=== PATIENT | male | born 1965 | race Caucasian/White ===

== ENCOUNTER 2017-12-03 16:19 | Emergency (ER) | payer OTHER ==
--- OUTSIDE RECORDS SUMMARY | 2017-12-03 16:33 | XMS REPORT ---
:1965 External Reference #:[id number] Author Organization [facility] Address [address] [address] Phone [phone] Care Team Providers Name Role Phone Luis Miguel Villafana MD Primary Care Physician Unavailable Payers Type Date Identification Numbers Payment Provider Subscriber Commercial Policy Number: [id number] Neville Adams Petty PayID: [id number] [address] [place] [address] Medigap Part B Expires: 2013 Policy Number: [facility] Adams Petty [id number] Group Number: [id number] [address] [address] PayID: [id number] [place] [address] Problems Date Description Provider Status Onset: 07/09/2012 Rheumatoid arthritis Otis Sacnhez M.D. 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 Active Encounter Onset: 07/09/2012 Arthralgia of the lower leg Otis Sanchez M.D. Active Onset: 10/26/2014 Taking medication OK Reyes Active Social History Type Date Description Comments ETOH Use Rarely consumes alcohol Smoking Patient has never smoked Allergies, Adverse Reactions, Alerts Date Description Reaction Status Severity Comments 12/24/2010 NKDA active Medications Medication Date Status Form Strength Qnty SIG Indications Ordering Provider Hydroxychloroquine 05/22/ Active Tablets 200mg 60tabs 2 tabs M06.09 Zsofia Sulfate 2017 daily. OK Barnes Methotrexate 05/22/ Active Tablets 2.5mg 24tabs 6 tbs M06.09 Zsofia 2017 by aubrey Barnes every week Z79.899 Omeprazole 11/04/[address] 20mg 90caps 1 by mouth Zsofia every day Cameron, [employer] Folic Acid 06/17/2013 Active Tablets 1mg 30tabs take 1 Z79 Zsofia tablet .89 Cameron, daily 9 [employer] Ibuprofen Active Tablets 200mg 20tabs prn Unknown Lansoprazole Active Capsules DR 30mg 30caps take 1 Z79 Zsofia capsule .89 Cameron, daily 9 [employer] Fish Oil Active Capsules 1200mg 2 by mouth Unknown every day Carol Allergy 05/22/2017 - Hx Tablets 60mg 30tabs 1 by mouth J30 Zsofia 11/23/2017 every day .9 Cameron, [employer] Prednisone 02/18/2017 - Hx Tablets 5mg 50tabs take 4 Zsofia 05/21/2017 tablets po Cameron, daily for [employer] 5 days, 3 tabs for 5 days, 2 tabs 5 days then 1 tabs for 5 days then d/c Methotrexate 02/18/2017 - Hx Tablets 2.5mg 24tabs 6 tbs by M06 Zsofia 05/22/2017 mouth .09 Cameron, every week [employer] Z79.899 Methotrexate 07/21/2014 - Hx Tablets 2.5mg 20tabs 4 tbs by M06.09 Zsofia 02/18/2017 mouth every Cameron, [employer] week Z79.899 Prednisone 07/09/2012 - Hx Tablets 5mg 70tabs 4 qd x 1 714.0 Otis 10/13/2012 week, 3 qd x Laura, M.D. 1 week, 2 qd x 1 week, 1 qd x 1 week Prednisone 12/09/2011 - Hx Tablets 5mg 63tabs 4 qd x 1 Otis 03/05/2012 week, 3 qd x Laura, M.D. 1 week, 2 qd x 1 week Prednisone 01/07/2011 - Hx Tablets 5mg 65tabs 2 qam + 1 Otis 05/08/2011 qpm for 2 Endo, M.D. weeks, then 1 qam + 1 qpm x 1 week, then 1 qam. Methotrexate 12/24/2010 - Hx Tablets 2.5mg 96tabs take 6 714.0 Zsofia 07/21/2014 tablets one Cameron, [facility] time per week Naproxen Sodium - Hx Tablets 220mg 60tabs 1 po bid prn Unknown 01/12/2014 Immunizations CPT Code Status Date Vaccine Reaction Lot # 82067 Given 08/24/2017 Influenza Virus Vaccine, no reaction noted [id number] Quadrivalent, Split, Preservative Free [id number] Given 07/15/2016 Influenza Virus Vaccine, no reaction noted [id number] Quadrivalent, Split Virus, [place] [address] Given 08/01/2015 Influenza Virus Vaccine, No reaction noted [id number] Quadrivalent, Split, Preservative Free [id number] Given 07/21/2014 Flu Vaccine Split Virus [id number] Preservative Free For Indiv 3Yr Older Vital Signs Date Vital Result Comment 11/23/2017 Weight 310.00 lb Heart Rate 110 /min BP Systolic Sitting 150 mmHg BP Diastolic Sitting 90 mmHg O2 % BldC Oximetry 92 % 08/24/2017 Height 69 inches 5'9" Weight 313.00 lb Heart Rate 82 /min BP Systolic Sitting 140 mmHg BP Diastolic Sitting 90 mmHg Respiratory Rate 14 /min BMI (Body Mass Index) 46.2 kg/m2 05/22/2017 Height 69 inches 5'9" Weight 314.00 lb Heart Rate 84 /min BP Systolic Sitting 152 mmHg BP Diastolic Sitting 98 mmHg Respiratory Rate 14 /min Body Temperature 97.6 F Pain Level 0 BMI (Body Mass Index) 46.4 kg/m2 11/18/2016 Height 69 inches 5'9" Weight 320.00 lb Heart Rate 84 /min BP Systolic Sitting 140 mmHg BP Diastolic Sitting 80 mmHg Respiratory Rate 14 /min Pain Level 14 BMI (Body Mass Index) 47.3 kg/m2 07/15/2016 Height 69 inches 5'9" Weight 320.00 lb BP Systolic Sitting 140 mmHg BP Diastolic Sitting 90 mmHg Respiratory Rate 14 /min Body Temperature 97.3 F Pain Level 3 BMI (Body Mass Index) 47.3 kg/m2 03/14/2016 Height 69 inches 5'9" Weight 306.00 lb Heart Rate 76 /min BP Systolic Sitting 144 mmHg BP Diastolic Sitting 98 mmHg Body Temperature 98.1 F Pain Level 0 BMI (Body Mass Index) 45.2 kg/m2 11/06/2015 Height 69 inches 5'9" Weight 316.00 lb Heart Rate 80 /min BP Systolic Sitting 130 mmHg BP Diastolic Sitting 88 mmHg Body Temperature 98.0 F Pain Level 2 BMI (Body Mass Index) 46.7 kg/m2 08/01/2015 Height 69 inches 5'9" Weight 300.00 lb Heart Rate 84 /min BP Systolic Sitting 128 mmHg BP Diastolic Sitting 70 mmHg Body Temperature 98.0 F Pain Level 0 BMI (Body Mass Index) 44.3 kg/m2 05/03/2015 Height 69 inches 5'9" Weight 300.00 lb Heart Rate 74 /min BP Systolic Sitting 138 mmHg BP Diastolic Sitting 88 mmHg Pain Level 1 BMI (Body Mass Index) 44.3 kg/m2 01/23/2015 Height 69 inches 5'9" Weight 295.00 lb BP Systolic Sitting 140 mmHg BP Diastolic Sitting 88 mmHg Pain Level 68 BMI (Body Mass Index) 43.6 kg/m2 10/26/2014 Height 69 inches 5'9" Weight 296.00 lb with 4 # boots Heart Rate 68 /min BP Systolic Sitting 140 mmHg BP Diastolic Sitting 88 mmHg Pain Level 2 BMI (Body Mass Index) 43.7 kg/m2 07/21/2014 Height 69 inches 5'9" Weight 318.50 lb Heart Rate 80 /min BP Systolic Sitting 132 mmHg BP Diastolic Sitting 80 mmHg Pain Level 0 BMI (Body Mass Index) 47.0 kg/m2 04/13/2014 Height 69 inches 5'9" Weight 315.00 lb Heart Rate 72 /min BP Systolic Sitting 138 mmHg BP Diastolic Sitting 88 mmHg Pain Level 0 BMI (Body Mass Index) 46.5 kg/m2 01/12/2014 Height 69 inches 5'9" Weight 315.00 lb Heart Rate 72 /min BP Systolic 126 mmHg BP Diastolic 82 mmHg BMI (Body Mass Index) 46.5 kg/m2 09/16/2013 Height 69 inches 5'9" Weight 317.25 lb Heart Rate 84 /min BP Systolic Sitting 142 mmHg BP Diastolic Sitting 86 mmHg BMI (Body Mass Index) 46.8 kg/m2 06/17/2013 Height 69 inches 5'9" Weight 314.50 lb Heart Rate 87 /min BP Systolic Sitting 144 mmHg BP Diastolic Sitting 96 mmHg BMI (Body Mass Index) 46.4 kg/m2 02/23/2013 Height 69 inches 5'9" Weight 310.00 lb Heart Rate 80 /min BP Systolic Sitting 132 mmHg BP Diastolic Sitting 72 mmHg BMI (Body Mass Index) 45.8 kg/m2 10/14/2012 Height 69 inches 5'9" Weight 310.00 lb Heart Rate 84 /min BP Systolic Sitting 132 mmHg BP Diastolic Sitting 74 mmHg BMI (Body Mass Index) 45.8 kg/m2 07/09/2012 Height 69 inches 5'9" Weight 300.00 lb Heart Rate 80 /min BP Systolic Sitting 131 mmHg BP Diastolic Sitting 78 mmHg BMI (Body Mass Index) 44.3 kg/m2 03/05/2012 Height 69 inches 5'9" Weight 300.00 lb Heart Rate 81 /min BP Systolic Sitting 127 mmHg BP Diastolic Sitting 73 mmHg BMI (Body Mass Index) 44.3 kg/m2 12/09/2011 Height 69 inches 5'9" Heart Rate 78 /min BP Systolic Sitting 131 mmHg BP Diastolic Sitting 77 mmHg 09/09/2011 Height 69 inches 5'9" Weight 300.00 lb Heart Rate 88 /min BP Systolic Sitting 131 mmHg BP Diastolic Sitting 76 mmHg BMI (Body Mass Index) 44.3 kg/m2 05/08/2011 Weight 280.00 lb BP Systolic 118 mmHg BP Diastolic 82 mmHg 02/27/2011 Weight 284.00 lb Heart Rate 68 /min BP Systolic 122 mmHg BP Diastolic 80 mmHg 12/24/2010 Height 71 inches 5'11" Weight 276.00 lb Heart Rate 80 /min BP Systolic 130 mmHg BP Diastolic 78 mmHg BMI (Body Mass Index) 38.5 kg/m2 Results Test Date Test Result H/L Range Note CBC Auto Diff 08/24/2017 White Blood Count 7.0 10^3/uL 3.5-10.8 Red Blood Count 5.23 10^6/uL 4.0-5.4 Hemoglobin 16.1 g/dL 14.0-18.0 Hematocrit 47 % 42-52 Mean Corpuscular Volume 90 fL 80-94 Mean Corpuscular Hemoglobin 31 pg 27-31 Mean Corpuscular HGB Conc 34 g/dL 31-36 Red Cell Distribution Width 14 % 10.5-15 Platelet Count 216 10^3/uL 150-450 Mean Platelet Volume 9 um3 7.4-10.4 Abs Neutrophils 5.2 10^3/uL 1.5-7.7 Abs Lymphocytes 1.1 10^3/uL 1.0-4.8 Abs Monocytes 0.5 10^3/uL 0-0.8 Abs Eosinophils 0.1 10^3/uL 0-0.6 Abs Basophils 0 10^3/uL 0-0.2 Abs Nucleated RBC 0 10^3/uL Granulocyte % 74.8 % 38-83 Lymphocyte % 15.8 % Low 25-47 Monocyte % 7.3 % 1-9 Eosinophil % 1.6 % 0-6 Basophil % 0.5 % 0-2 Nucleated Red Blood Cells % 0.1 Comp Metabolic Panel 08/24/2017 Sodium 137 mmol/L 133-145 Potassium 4.1 mmol/L 3.5-5.0 Chloride 105 mmol/L 101-111 Co2 Carbon Dioxide 25 mmol/L 22-32 Anion Gap 7 mmol/L 2-11 Glucose 121 mg/dL High 70-100 Blood Urea Nitrogen 17 mg/dL 6-24 Creatinine 0.91 mg/dL 0.67-1.17 BUN/Creatinine Ratio 18.7 8-20 Calcium 9.0 mg/dL 8.6-10.3 Total Protein 6.7 g/dL 6.4-8.9 Albumin 4.3 g/dL 3.2-5.2 Globulin 2.4 g/dL 2-4 Albumin/Globulin Ratio 1.8 1-3 Total Bilirubin 0.50 mg/dL 0.2-1.0 Alkaline Phosphatase 80 U/L 34-104 Alt 25 U/L 7-52 Ast 18 U/L 13-39 Egfr Non- 87.5 >60 Egfr 112.5 >60 1 Laboratory test finding 08/24/2017 C Reactive Protein 6.69 mg/L High < 5.00 2 Erythrocyte Sed Rate 15 mm/Hr 0-20 CBC W/Auto Diff 05/18/2017 White Blood Count 8.9 10^3/uL 3.5-10.8 Red Blood Count 4.96 10^6/uL 4.0-5.4 Hemoglobin 15.4 g/dL 14.0-18.0 Hematocrit 45 % 42-52 Mean Corpuscular Volume 90 fL 80-94 Mean Corpuscular Hemoglobin 31 pg 27-31 Mean Corpuscular HGB Conc 34 g/dL 31-36 Red Cell Distribution Width 14 % 10.5-15 Platelet Count 228 10^3/uL 150-450 Mean Platelet Volume 9 um3 7.4-10.4 Abs Neutrophils 6.6 10^3/uL 1.5-7.7 Abs Lymphocytes 1.4 10^3/uL 1.0-4.8 Abs Monocytes 0.7 10^3/uL 0-0.8 Abs Eosinophils 0.2 10^3/uL 0-0.6 Abs Basophils 0 10^3/uL 0-0.2 Abs Nucleated RBC 0 10^3/uL Granulocyte % 74.3 % 38-83 Lymphocyte % 15.2 % Low 25-47 Monocyte % 7.8 % 1-9 Eosinophil % 2.2 % 0-6 Basophil % 0.5 % 0-2 Nucleated Red Blood Cells % 0 CMP Panel 05/18/2017 Sodium 139 mmol/L 133-145 Potassium 5.0 mmol/L 3.5-5.0 Chloride 103 mmol/L 101-111 Co2 Carbon Dioxide 30 mmol/L 22-32 Anion Gap 6 mmol/L 2-11 Glucose 106 mg/dL High 70-100 Blood Urea Nitrogen 15 mg/dL 6-24 Creatinine 1.01 mg/dL 0.67-1.17 BUN/Creatinine Ratio 14.9 8-20 Calcium 9.3 mg/dL 8.6-10.3 Total Protein 6.8 g/dL 6.4-8.9 Albumin 4.3 g/dL 3.2-5.2 Globulin 2.5 g/dL 2-4 Albumin/Globulin Ratio 1.7 1-3 Total Bilirubin 0.60 mg/dL 0.2-1.0 Alkaline Phosphatase 87 U/L 34-104 Alt 27 U/L 7-52 Ast 22 U/L 13-39 Egfr Non- 77.6 >60 Egfr 99.8 >60 3 Laboratory test finding 05/18/2017 C Reactive Protein 7.51 mg/L High < 5.00 4 Erythrocyte Sed Rate 22 mm/Hr High 0-20 CBC Auto Diff 02/17/2017 White Blood Count 10.7 10^3/uL 3.5-10.8 Red Blood Count 4.92 10^6/uL 4.0-5.4 Hemoglobin 15.0 g/dL 14.0-18.0 Hematocrit 43 % 42-52 Mean Corpuscular Volume 88 fL 80-94 Mean Corpuscular Hemoglobin 31 pg 27-31 Mean Corpuscular HGB Conc 35 g/dL 31-36 Red Cell Distribution Width 13 % 10.5-15 Platelet Count 218 10^3/uL 150-450 Mean Platelet Volume 10 um3 7.4-10.4 Abs Neutrophils 8.1 10^3/uL High 1.5-7.7 Abs Lymphocytes 1.5 10^3/uL 1.0-4.8 Abs Monocytes 0.8 10^3/uL 0-0.8 Abs Eosinophils 0.2 10^3/uL 0-0.6 Abs Basophils 0.1 10^3/uL 0-0.2 Abs Nucleated RBC 0 10^3/uL Granulocyte % 75.6 % 38-83 Lymphocyte % 14.0 % Low 25-47 Monocyte % 7.5 % 1-9 Eosinophil % 2.3 % 0-6 Basophil % 0.6 % 0-2 Nucleated Red Blood Cells % 0 Comp Metabolic Panel 02/17/2017 Sodium 138 mmol/L 133-145 Potassium 4.1 mmol/L 3.5-5.0 Chloride 106 mmol/L 101-111 Co2 Carbon Dioxide 26 mmol/L 22-32 Anion Gap 6 mmol/L 2-11 Glucose 88 mg/dL 70-100 Blood Urea Nitrogen 22 mg/dL 6-24 Creatinine 1.02 mg/dL 0.67-1.17 BUN/Creatinine Ratio 21.6 High 8-20 Calcium 8.7 mg/dL 8.6-10.3 Total Protein 6.2 g/dL Low 6.4-8.9 Albumin 3.9 g/dL 3.2-5.2 Globulin 2.3 g/dL 2-4 Albumin/Globulin Ratio 1.7 1-3 Total Bilirubin 0.40 mg/dL 0.2-1.0 Alkaline Phosphatase 90 U/L 34-104 Alt 17 U/L 7-52 Ast 17 U/L 13-39 Egfr Non- 76.7 >60 Egfr 98.6 >60 5 Laboratory test finding 02/17/2017 C Reactive Protein 15.57 mg/L High &lt ; 5.00 6 Erythrocyte Sed Rate 21 mm/Hr High 0-20 7 Comp Metabolic Panel 11/13/2016 Sodium 137 mmol/L 133-145 Potassium 3.8 mmol/L 3.5-5.0 Chloride 105 mmol/L 101-111 Co2 Carbon Dioxide 27 mmol/L 22-32 Anion Gap 5 mmol/L 2-11 Glucose 111 mg/dL High 70-100 Blood Urea Nitrogen 15 mg/dL 6-24 Creatinine 0.91 mg/dL 0.67-1.17 BUN/Creatinine Ratio 16.5 8-20 Calcium 9.1 mg/dL 8.6-10.3 Total Protein 6.6 g/dL 6.4-8.9 Albumin 4.0 g/dL 3.2-5.2 Globulin 2.6 g/dL 2-4 Albumin/Globulin Ratio 1.5 1-3 Total Bilirubin 0.60 mg/dL 0.2-1.0 Alkaline Phosphatase 79 U/L 34-104 Alt 29 U/L 7-52 Ast 24 U/L 13-39 Egfr Non- 87.5 >60 Egfr 112.5 >60 8 Laboratory test finding 11/13/2016 C Reactive Protein 9.82 mg/L High < 5.00 9 CBC Auto Diff 11/13/2016 White Blood Count 10.3 10^3/uL 3.5-10.8 Red Blood Count 5.08 10^6/uL 4.0-5.4 Hemoglobin 15.4 g/dL 14.0-18.0 Hematocrit 45 % 42-52 Mean Corpuscular Volume 89 fL 80-94 Mean Corpuscular Hemoglobin 30 pg 27-31 Mean Corpuscular HGB Conc 34 g/dL 31-36 Red Cell Distribution Width 14 % 10.5-15 Platelet Count 199 10^3/uL 150-450 Mean Platelet Volume 10 um3 7.4-10.4 Abs Neutrophils 8.1 10^3/uL High 1.5-7.7 Abs Lymphocytes 1.2 10^3/uL 1.0-4.8 Abs Monocytes 0.8 10^3/uL 0-0.8 Abs Eosinophils 0.2 10^3/uL 0-0.6 Abs Basophils 0 10^3/uL 0-0.2 Abs Nucleated RBC 0.01 10^3/uL Granulocyte % 78.1 % 38-83 Lymphocyte % 11.6 % Low 25-47 Monocyte % 8.1 % 1-9 Eosinophil % 1.9 % 0-6 Basophil % 0.3 % 0-2 Nucleated Red Blood Cells % 0.1 Laboratory test 11/13/2016 Erythrocyte Sed Rate 21 mm/Hr High 0-20 10 finding Laboratory test 07/15/2016 Hemoglobin A1c (Glyco 6.3 % High Less than 6.0 11 finding HGB) CBC Auto Diff 07/15/2016 White Blood Count 8.7 10^3/uL 3.5-10.8 Red Blood Count 5.31 10^6/uL 4.0-5.4 Hemoglobin 16.1 g/dL 14.0-18.0 Hematocrit 48 % 42-52 Mean Corpuscular Volume 90 fL 80-94 Mean Corpuscular Hemoglobin 30 pg 27-31 Mean Corpuscular HGB Conc 34 g/dL 31-36 Red Cell Distribution Width 14 % 10.5-15 Platelet Count 218 10^3/uL 150-450 Mean Platelet Volume 10 um3 7.4-10.4 Abs Neutrophils 6.7 10^3/uL 1.5-7.7 Abs Lymphocytes 1.1 10^3/uL 1.0-4.8 Abs Monocytes 0.6 10^3/uL 0-0.8 Abs Eosinophils 0.2 10^3/uL 0-0.6 Abs Basophils 0 10^3/uL 0-0.2 Abs Nucleated RBC 0 10^3/uL Granulocyte % 77.3 % 38-83 Lymphocyte % 12.8 % Low 25-47 Monocyte % 7.3 % 1-9 Eosinophil % 2.2 % 0-6 Basophil % 0.4 % 0-2 Nucleated Red Blood Cells % 0 Comp Metabolic Panel 07/15/2016 Sodium 137 mmol/L 133-145 Potassium 4.3 mmol/L 3.5-5.0 Chloride 103 mmol/L 101-111 Co2 Carbon Dioxide 28 mmol/L 22-32 Anion Gap 6 mmol/L 2-11 Glucose 108 mg/dL High 70-100 Blood Urea Nitrogen 18 mg/dL 6-24 Creatinine 1.06 mg/dL 0.67-1.17 BUN/Creatinine Ratio 17.0 8-20 Calcium 9.5 mg/dL 8.6-10.3 Total Protein 6.7 g/dL 6.4-8.9 Albumin 4.0 g/dL 3.2-5.2 Globulin 2.7 g/dL 2-4 Albumin/Globulin Ratio 1.5 1-3 Total Bilirubin 0.40 mg/dL 0.2-1.0 Alkaline Phosphatase 82 U/L 34-104 Alt 31 U/L 7-52 Ast 20 U/L 13-39 Egfr Non- 73.7 >60 Egfr 94.7 >60 12 Laboratory test finding 07/15/2016 C Reactive Protein 13.68 mg/L High &lt ; 5.00 13 Erythrocyte Sed Rate 18 mm/Hr 0-20 14 CBC W/Auto Diff 04/09/2016 White Blood Count 7.0 10^3/uL 3.5-10.8 Red Blood Count 5.22 10^6/uL 4.0-5.4 Hemoglobin 15.5 g/dL 14.0-18.0 Hematocrit 46 % 42-52 Mean Corpuscular Volume 88 fL 80-94 Mean Corpuscular Hemoglobin 30 pg 27-31 Mean Corpuscular HGB Conc 34 g/dL 31-36 Red Cell Distribution Width 14 % 10.5-15 Platelet Count 200 10^3/uL 150-450 Mean Platelet Volume 10 um3 7.4-10.4 Abs Neutrophils 4.9 10^3/uL 1.5-7.7 Abs Lymphocytes 1.2 10^3/uL 1.0-4.8 Abs Monocytes 0.6 10^3/uL 0-0.8 Abs Eosinophils 0.2 10^3/uL 0-0.6 Abs Basophils 0.1 10^3/uL 0-0.2 Abs Nucleated RBC 0 10^3/uL Granulocyte % 70.0 % 38-83 Lymphocyte % 17.3 % Low 25-47 Monocyte % 8.4 % 1-9 Eosinophil % 3.0 % 0-6 Basophil % 1.3 % 0-2 Nucleated Red Blood Cells % 0 CMP Panel 04/09/2016 Sodium 136 mmol/L 133-145 Potassium 4.3 mmol/L 3.5-5.0 Chloride 104 mmol/L 101-111 Co2 Carbon Dioxide 26 mmol/L 22-32 Anion Gap 6 mmol/L 2-11 Glucose 118 mg/dL High 70-100 Blood Urea Nitrogen 19 mg/dL 6-24 Creatinine 0.97 mg/dL 0.67-1.17 BUN/Creatinine Ratio 19.6 8-20 Calcium 9.1 mg/dL 8.6-10.3 Total Protein 6.5 g/dL 6.4-8.9 Albumin 4.0 g/dL 3.2-5.2 Globulin 2.5 g/dL 2-4 Albumin/Globulin Ratio 1.6 1-3 Total Bilirubin 0.40 mg/dL 0.2-1.0 Alkaline Phosphatase 79 U/L 34-104 Alt 32 U/L 7-52 Ast 23 U/L 13-39 Egfr Non- 81.6 >60 Egfr 104.9 >60 15 Laboratory test finding 04/09/2016 Erythrocyte Sed Rate 16 mm/Hr 0-20 16 C Reactive Protein 5.82 mg/L High < 5.00 17 CBC Auto Diff 11/06/2015 White Blood Count 8.0 10^3/uL 3.5-10.8 Red Blood Count 5.32 10^6/uL 4.0-5.4 Hemoglobin 16.2 g/dL 14.0-18.0 Hematocrit 48 % 42-52 Mean Corpuscular Volume 91 fL 80-94 Mean Corpuscular Hemoglobin 31 pg 27-31 Mean Corpuscular HGB Conc 34 g/dL 31-36 Red Cell Distribution Width 14 % 10.5-15 Platelet Count 195 10^3/uL 150-450 Mean Platelet Volume 10 um3 7.4-10.4 Abs Neutrophils 5.8 10^3/uL 1.5-7.7 Abs Lymphocytes 1.0 10^3/uL 1.0-4.8 Abs Monocytes 0.6 10^3/uL 0-0.8 Abs Eosinophils 0.5 10^3/uL 0-0.6 Abs Basophils 0 10^3/uL 0-0.2 Abs Nucleated RBC 0 10^3/uL Granulocyte % 73.0 % 38-83 Lymphocyte % 12.0 % Low 25-47 Monocyte % 7.8 % 1-9 Eosinophil % 6.7 % High 0-6 Basophil % 0.5 % 0-2 Nucleated Red Blood Cells % 0 Comp Metabolic Panel 11/06/2015 Sodium 137 mmol/L 133-145 Potassium 4.5 mmol/L 3.5-5.0 Chloride 103 mmol/L 101-111 Co2 Carbon Dioxide 28 mmol/L 22-32 Anion Gap 6 mmol/L 2-11 Glucose 148 mg/dL High 70-100 Blood Urea Nitrogen 17 mg/dL 6-24 Creatinine 1.05 mg/dL 0.67-1.17 BUN/Creatinine Ratio 16.2 8-20 Calcium 9.0 mg/dL 8.6-10.3 Total Protein 6.4 g/dL 6.4-8.9 Albumin 4.2 g/dL 3.2-5.2 Globulin 2.2 g/dL 2-4 Albumin/Globulin Ratio 1.9 1-3 Total Bilirubin 0.40 mg/dL 0.2-1.0 Alkaline Phosphatase 90 U/L 34-104 Alt 29 U/L 7-52 Ast 21 U/L 13-39 Egfr Non- 74.5 >60 Egfr 95.8 >60 18 Laboratory test finding 11/06/2015 C Reactive Protein 7.17 mg/L High < 5.00 19 Erythrocyte Sed Rate 14 mm/Hr 0-20 20 Hemoglobin A1c (Glyco HGB) 6.2 % High Less than 6.0 21 Comp Metabolic Panel 08/01/2015 Sodium 138 mmol/L 133-145 Potassium 4.2 mmol/L 3.5-5.0 Chloride 106 mmol/L 101-111 Co2 Carbon Dioxide 26 mmol/L 22-32 Anion Gap 6 mmol/L 2-11 Glucose 110 mg/dL High 70-100 Blood Urea Nitrogen 13 mg/dL 6-24 Creatinine 1.21 mg/dL High 0.67-1.17 BUN/Creatinine Ratio 10.7 8-20 Calcium 9.0 mg/dL 8.6-10.3 Total Protein 6.4 g/dL 6.4-8.9 Albumin 4.3 g/dL 3.2-5.2 Globulin 2.1 g/dL 2-4 Albumin/Globulin Ratio 2.0 1-3 Total Bilirubin 0.50 mg/dL 0.2-1.0 Alkaline Phosphatase 96 U/L 34-104 Alt 35 U/L 7-52 Ast 24 U/L 13-39 Egfr Non- 63.5 >60 Egfr 81.6 >60 22 Laboratory test finding 08/01/2015 C Reactive Protein 5.94 mg/L High < 5.00 23 CBC Auto Diff 08/01/2015 White Blood Count 7.7 10^3/uL 4.8-10.8 Red Blood Count 5.26 10^6/uL 4.0-5.4 Hemoglobin 16.2 g/dL 14.0-18.0 Hematocrit 47 % 42-52 Mean Corpuscular Volume 90 fL 80-94 Mean Corpuscular Hemoglobin 31 pg 27-31 Mean Corpuscular HGB Conc 34 g/dL 31-36 Red Cell Distribution Width 14 % 10.5-15 Platelet Count 192 10^3/uL 150-450 Mean Platelet Volume 9 um3 7.4-10.4 Abs Neutrophils 5.6 10^3/uL 1.5-7.7 Abs Lymphocytes 1.4 10^3/uL 1.0-4.8 Abs Monocytes 0.5 10^3/uL 0-0.8 Abs Eosinophils 0.3 10^3/uL 0-0.6 Abs Basophils 0 10^3/uL 0-0.2 Abs Nucleated RBC 0.06 10^3/uL Granulocyte % 72.2 % 38-83 Lymphocyte % 17.7 % Low 25-47 Monocyte % 6.4 % 1-9 Eosinophil % 3.4 % 0-6 Basophil % 0.3 % 0-2 Nucleated Red Blood Cells % 0.7 Laboratory test finding 08/01/2015 Erythrocyte Sed Rate 15 mm/Hr 0-20 24 Comp Metabolic Panel 05/03/2015 Sodium 137 mmol/L 133-145 Potassium 4.3 mmol/L 3.5-5.0 Chloride 104 mmol/L 101-111 Co2 Carbon Dioxide 27 mmol/L 22-32 Anion Gap 6 mmol/L 2-11 Glucose 116 mg/dL High 70-100 Blood Urea Nitrogen 16 mg/dL 6-24 Creatinine 0.94 mg/dL 0.67-1.17 BUN/Creatinine Ratio 17.0 8-20 Calcium 9.4 mg/dL 8.6-10.3 Total Protein 6.7 g/dL 6.4-8.9 Albumin 4.4 g/dL 3.2-5.2 Globulin 2.3 g/dL 2-4 Albumin/Globulin Ratio 1.9 1-3 Total Bilirubin 0.50 mg/dL 0.2-1.0 Alkaline Phosphatase 78 U/L 34-104 Alt 24 U/L 7-52 Ast 20 U/L 13-39 Egfr Non- 84.9 >60 Egfr 109.2 >60 25 Laboratory test finding 05/03/2015 C Reactive Protein 5.88 mg/L High < 5.00 26 CBC Auto Diff 05/03/2015 White Blood Count 7.0 10^3/uL 4.8-10.8 Red Blood Count 5.40 10^6/uL 4.0-5.4 Hemoglobin 16.5 g/dL 14.0-18.0 Hematocrit 49 % 42-52 Mean Corpuscular Volume 91 fL 80-94 Mean Corpuscular Hemoglobin 31 pg 27-31 Mean Corpuscular HGB Conc 34 g/dL 31-36 Red Cell Distribution Width 14 % 10.5-15 Platelet Count 187 10^3/uL 150-450 Mean Platelet Volume 9 um3 7.4-10.4 Abs Neutrophils 4.9 10^3/uL 1.5-7.7 Abs Lymphocytes 1.3 10^3/uL 1.0-4.8 Abs Monocytes 0.6 10^3/uL 0-0.8 Abs Eosinophils 0.2 10^3/uL 0-0.6 Abs Basophils 0 10^3/uL 0-0.2 Abs Nucleated RBC 0.01 10^3/uL Granulocyte % 70.2 % 38-83 Lymphocyte % 18.1 % Low 25-47 Monocyte % 9.0 % 1-9 Eosinophil % 2.2 % 0-6 Basophil % 0.5 % 0-2 Nucleated Red Blood Cells % 0.1 Laboratory test finding 05/03/2015 Erythrocyte Sed Rate 16 mm/Hr 0-20 CBC Auto Diff 01/23/2015 White Blood Count 8.0 10^3/uL 4.8-10.8 Red Blood Count 5.27 10^6/uL 4.0-5.4 Hemoglobin 16.4 g/dL 14.0-18.0 Hematocrit 47 % 42-52 Mean Corpuscular Volume 90 fL 80-94 Mean Corpuscular Hemoglobin 31 pg 27-31 Mean Corpuscular HGB Conc 35 g/dL 31-36 Red Cell Distribution Width 14 % 10.5-15 Platelet Count 207 10^3/uL 150-450 Mean Platelet Volume 10 um3 7.4-10.4 Abs Neutrophils 5.7 10^3/uL 1.5-7.7 Abs Lymphocytes 1.3 10^3/uL 1.0-4.8 Abs Monocytes 0.7 10^3/uL 0-0.8 Abs Eosinophils 0.2 10^3/uL 0-0.6 Abs Basophils 0 10^3/uL 0-0.2 Abs Nucleated RBC 0 10^3/uL Granulocyte % 71.5 % 38-83 Lymphocyte % 16.8 % Low 25-47 Monocyte % 8.6 % 1-9 Eosinophil % 2.5 % 0-6 Basophil % 0.6 % 0-2 Nucleated Red Blood Cells % 0 Comp Metabolic Panel 01/23/2015 Sodium 135 mmol/L 133-145 Potassium 4.0 mmol/L 3.5-5.0 Chloride 104 mmol/L 101-111 Co2 Carbon Dioxide 26 mmol/L 22-32 Anion Gap 5 mmol/L 2-11 Glucose 107 mg/dL High 70-100 Blood Urea Nitrogen 13 mg/dL 6-24 Creatinine 0.99 mg/dL 0.67-1.17 BUN/Creatinine Ratio 13.1 8-20 Calcium 9.2 mg/dL 8.6-10.3 Total Protein 6.5 g/dL 6.4-8.9 Albumin 4.2 g/dL 3.2-5.2 Globulin 2.3 g/dL 2-4 Albumin/Globulin Ratio 1.8 1-3 Total Bilirubin 0.40 mg/dL 0.2-1.0 Alkaline Phosphatase 86 U/L 34-104 Alt 26 U/L 7-52 Ast 25 U/L 13-39 Egfr Non- 80.0 >60 Egfr 102.9 >60 27 Laboratory test finding 01/23/2015 C Reactive Protein 8.16 mg/L High < 5.00 28 Erythrocyte Sed Rate 18 mm/Hr 0-20 Comp Metabolic Panel 10/20/2014 Sodium 137 mmol/L 133-145 Potassium 4.3 mmol/L 3.5-5.0 Chloride 107 mmol/L 101-111 Co2 Carbon Dioxide 25 mmol/L 22-32 Anion Gap 5 mmol/L 2-11 Glucose 129 mg/dL High 70-100 Blood Urea Nitrogen 16 mg/dL 6-24 Creatinine 0.98 mg/dL 0.67-1.17 BUN/Creatinine Ratio 16.3 8-20 Calcium 8.8 mg/dL 8.6-10.3 Total Protein 6.4 g/dL 6.4-8.9 Albumin 4.2 g/dL 3.2-5.2 Globulin 2.2 g/dL 2-4 Albumin/Globulin Ratio 1.9 1-3 Total Bilirubin 0.30 mg/dL 0.2-1.0 Alkaline Phosphatase 99 U/L 34-104 Alt 26 U/L 7-52 Ast 21 U/L 13-39 Egfr Non- 81.0 >60 Egfr 104.1 >60 29 Laboratory test finding 10/20/2014 Erythrocyte Sed Rate 13 mm/Hr 0-20 C Reactive Protein 6.95 mg/L High < 5.00 30 CBC Auto Diff 10/20/2014 White Blood Count 8.4 10^3/uL 4.8-10.8 Red Blood Count 5.37 10^6/uL 4.0-5.4 Hemoglobin 16.1 g/dL 14.0-18.0 Hematocrit 48 % 42-52 Mean Corpuscular Volume 90 fL 80-94 Mean Corpuscular Hemoglobin 30 pg 27-31 Mean Corpuscular HGB Conc 33 g/dL 31-36 Red Cell Distribution Width 14 % 10.5-15 Platelet Count 199 10^3/uL 150-450 Mean Platelet Volume 10 um3 7.4-10.4 Abs Neutrophils 6.4 10^3/uL 1.5-7.7 Abs Lymphocytes 1.2 10^3/uL 1.0-4.8 Abs Monocytes 0.7 10^3/uL 0-0.8 Abs Eosinophils 0.2 10^3/uL 0-0.6 Abs Basophils 0 10^3/uL 0-0.2 Abs Nucleated RBC 0.01 10^3/uL Granulocyte % 75.7 % 38-83 Lymphocyte % 14.0 % Low 25-47 Monocyte % 8.0 % 1-9 Eosinophil % 2.1 % 0-6 Basophil % 0.2 % 0-2 Nucleated Red Blood Cells % 0.1 CBC Auto Diff 06/26/2014 White Blood Count 8.9 10^3/uL 4.8-10.8 Red Blood Count 5.20 10^6/uL 4.0-5.4 Hemoglobin 16.1 g/dL 14.0-18.0 Hematocrit 47 % 42-52 Mean Corpuscular Volume 91 fL 80-94 Mean Corpuscular Hemoglobin 31 pg 27-31 Mean Corpuscular HGB Conc 34 g/dL 31-36 Red Cell Distribution Width 14 % 10.5-15 Platelet Count 220 10^3/uL 150-450 Mean Platelet Volume 10 um3 7.4-10.4 Abs Neutrophils 6.9 10^3/uL 1.5-7.7 Abs Lymphocytes 1.1 10^3/uL 1.0-4.8 Abs Monocytes 0.7 10^3/uL 0-0.8 Abs Eosinophils 0.1 10^3/uL 0-0.6 Abs Basophils 0 10^3/uL 0-0.2 Abs Nucleated RBC 0.01 10^3/uL Neutrophil % 78 % 38-83 Lymphocytes % 14 % Low 25-47 Monocytes % 7 % 0-13 Eosinophils % 1 % 0-6 RBC Morphology Normal Normal Laboratory test finding 06/26/2014 C Reactive Protein 9.79 mg/L High < 5.00 31 Erythrocyte Sed Rate 20 mm/Hr High 0-14 Comp Metabolic Panel 06/26/2014 Sodium 136 mmol/L 133-145 Potassium 4.4 mmol/L 3.7-5.6 Chloride 105 mmol/L 101-111 Co2 Carbon Dioxide 28 mmol/L 22-32 Anion Gap 3 mmol/L 2-11 Glucose 120 mg/dL High 70-100 Blood Urea Nitrogen 18 mg/dL 6-24 Creatinine 0.99 mg/dL 0.67-1.17 BUN/Creatinine Ratio 18.2 8-20 Calcium 9.0 mg/dL 8.6-10.3 Total Protein 6.6 g/dL 6.4-8.9 Albumin 4.2 g/dL 3.2-5.2 Globulin 2.4 g/dL 2-4 Albumin/Globulin Ratio 1.8 1-3 Total Bilirubin 0.40 mg/dL 0.2-1.0 Alkaline Phosphatase 87 U/L 34-104 Alt 31 U/L 7-52 Ast 19 U/L 13-39 Egfr Non- 80.3 >60 Egfr 103.3 >60 32 CBC With Manual Diff 04/03/2014 White Blood Count 7.4 10^3/uL 4.8-10.8 Red Blood Count 5.06 10^6/uL 4.0-5.4 Hemoglobin 15.6 g/dL 14.0-18.0 Hematocrit 45 % 42-52 Mean Corpuscular Volume 89 fL 80-94 Mean Corpuscular Hemoglobin 31 pg 27-31 Mean Corpuscular HGB Conc 35 g/dL 31-36 Red Cell Distribution Width 14 % 10.5-15 Platelet Count 220 10^3/uL 150-450 Mean Platelet Volume 9 um3 7.4-10.4 Abs Neutrophils 5.4 10^3/uL 1.5-7.7 Abs Lymphocytes 1.2 10^3/uL 1.0-4.8 Abs Monocytes 0.7 10^3/uL 0-0.8 Abs Eosinophils 0.1 10^3/uL 0-0.6 Abs Basophils 0 10^3/uL 0-0.2 Abs Nucleated RBC 0 10^3/uL Neutrophil % 71 % 38-83 Lymphocytes % 16 % Low 25-47 Monocytes % 8 % 0-13 Eosinophils % 1 % 0-6 Reactive Lymph % 4 % 0-6 RBC Morphology Normal Normal Laboratory test finding 04/03/2014 Erythrocyte Sed Rate 19 mm/Hr High 0- 14 C Reactive Protein 14.04 mg/L High < 5.00 33 Comp Metabolic Panel 04/03/2014 Sodium 136 mmol/L 133-145 Potassium 4.1 mmol/L 3.7-5.6 Chloride 105 mmol/L 101-111 Co2 Carbon Dioxide 26 mmol/L 22-32 Anion Gap 5 mmol/L 2-11 Glucose 114 mg/dL High 70-100 Blood Urea Nitrogen 13 mg/dL 6-24 Creatinine 1.07 mg/dL 0.67-1.17 BUN/Creatinine Ratio 12.1 8-20 Calcium 9.0 mg/dL 8.6-10.3 Total Protein 6.4 g/dL 6.4-8.9 Albumin 4.1 g/dL 3.2-5.2 Globulin 2.3 g/dL 2-4 Albumin/Globulin Ratio 1.8 1-3 Total Bilirubin 0.40 mg/dL 0.2-1.0 Alkaline Phosphatase 85 U/L 34-104 Alt 26 U/L 7-52 Ast 21 U/L 13-39 Egfr Non- 73.5 >60 Egfr 94.5 >60 34 CBC With Manual Diff 11/18/2013 White Blood Count 9.2 10^3/uL 4.8-10.8 Red Blood Count 5.19 10^6/uL 4.0-5.4 Hemoglobin 15.9 g/dL 14.0-18.0 Hematocrit 47 % 42-52 Mean Corpuscular Volume 90 fL 80-94 Mean Corpuscular Hemoglobin 31 pg 27-31 Mean Corpuscular HGB Conc 34 g/dL 31-36 Red Cell Distribution Width 14 % 10.5-15 Platelet Count 247 10^3/uL 150-450 Mean Platelet Volume 9 um3 7.4-10.4 Abs Neutrophils 7.1 10^3/uL 1.5-7.7 Abs Lymphocytes 1.2 10^3/uL 1.0-4.8 Abs Monocytes 0.6 10^3/uL 0-0.8 Abs Eosinophils 0.2 10^3/uL 0-0.6 Abs Basophils 0 10^3/uL 0-0.2 Abs Nucleated RBC 0 10^3/uL Neutrophil % 83 % 38-83 Band % 1 % 0-8 Lymphocytes % 11 % Low 25-47 Monocytes % 3 % 0-13 Eosinophils % 1 % 0-6 Reactive Lymph % 1 % 0-6 RBC Morphology Normal Normal Laboratory test finding 11/18/2013 Cyclic Citrullinated Pept IgG <15.6 U 35 Rheumatoid Factor <15 IU/mL <15 36 Bing (Anti-Nuclear AB) Screen Negative Negative Karina Screen Negative Negative 37 Anti Double Stranded Dna Negative Negative Comp Metabolic Panel 11/18/2013 Sodium 138 mmol/L 133-145 Potassium 4.6 mmol/L 3.7-5.6 Chloride 104 mmol/L 101-111 Co2 Carbon Dioxide 28 mmol/L 22-32 Anion Gap 6 mmol/L 2-11 Glucose 122 mg/dL High 70-100 Blood Urea Nitrogen 13 mg/dL 6-24 Creatinine 1.03 mg/dL 0.67-1.17 BUN/Creatinine Ratio 12.6 8-20 Calcium 9.3 mg/dL 8.6-10.3 Total Protein 6.6 g/dL 6.4-8.9 Albumin 4.3 g/dL 3.2-5.2 Globulin 2.3 g/dL 2-4 Albumin/Globulin Ratio 1.9 1-3 Total Bilirubin 0.40 mg/dL 0.2-1.0 Alkaline Phosphatase 101 U/L 34-104 Alt 35 U/L 7-52 Ast 22 U/L 13-39 Egfr Non- 76.8 >60 Egfr 98.7 >60 38 Laboratory test finding 11/18/2013 C Reactive Protein 8.98 mg/L High Less than 5.0 39 Erythrocyte Sed Rate 18 mm/Hr High 0-14 Laboratory test finding 09/07/2013 C Reactive Protein 0.7 mg/dL High Less than 0.5 Erythrocyte Sed Rate 19 mm/Hr High 0-14 CBC With Manual Diff 09/07/2013 White Blood Count 7.2 10^3/uL 4.8-10.8 Red Blood Count 5.04 10^6/uL 4.0-5.4 Hemoglobin 15.5 g/dL 14.0-18.0 Hematocrit 45 % 42-52 Mean Corpuscular Volume 89 fL 80-94 Mean Corpuscular Hemoglobin 31 pg 27-31 Mean Corpuscular HGB Conc 35 g/dL 31-36 Red Cell Distribution Width 14 % 10.5-15 Platelet Count 225 10^3/uL 150-450 Mean Platelet Volume 9 um3 7.4-10.4 Abs Neutrophils 5.2 10^3/uL 1.5-7.7 Abs Lymphocytes 1.1 10^3/uL 1.0-4.8 Abs Monocytes 0.6 10^3/uL 0-0.8 Abs Eosinophils 0.2 10^3/uL 0-0.6 Abs Basophils 0 10^3/uL 0-0.2 Abs Nucleated RBC 0.01 10^3/uL Neutrophil % 69 % 38-83 Lymphocytes % 16 % Low 25-47 Monocytes % 10 % 0-13 Eosinophils % 4 % 0-6 Basophil % 1 % 0-2 RBC Morphology Normal Normal Laboratory test finding 09/07/2013 Rheumatoid Factor <15 IU/mL <15 40 Cyclic Citrullinated Pept IgG 26.5 U 41 Comp Metabolic Panel 09/07/2013 Sodium 136 mmol/L 133-145 Potassium 4.6 mmol/L 3.5-5.0 Chloride 103 mmol/L 101-111 Co2 Carbon Dioxide 27.0 mmol/L 22-32 Anion Gap 6.0 mmol/L 2-11 Glucose 104 mg/dL High 70-100 Blood Urea Nitrogen 13 mg/dL 6-24 Creatinine 1.00 mg/dL 0.50-1.40 BUN/Creatinine Ratio 13.0 8-20 Calcium 8.8 mg/dL 8.1-9.9 Total Protein 6.0 g/dL Low 6.2-8.1 Albumin 3.8 g/dL 3.6-5.4 Globulin 2.2 g/dL 2-4 Albumin/Globulin Ratio 1.7 1-3 Total Bilirubin 0.9 mg/dL 0.4-1.5 Alkaline Phosphatase 92 U/L 30-110 Alt 40 U/L 14-54 Ast 28 U/L 12-42 Egfr Non- 79.8 >60 Egfr 102.6 >60 42 Basic Metabolic Panel 05/26/2013 Sodium 137 mmol/L 133-145 Potassium 4.4 mmol/L 3.5-5.0 Chloride 106 mmol/L 101-111 Co2 Carbon Dioxide 26.0 mmol/L 22-32 Anion Gap 5.0 mmol/L 2-11 Glucose 108 mg/dL High 70-100 Blood Urea Nitrogen 18 mg/dL 6-24 Creatinine 1.00 mg/dL 0.50-1.40 BUN/Creatinine Ratio 18.0 8-20 Calcium 9.3 mg/dL 8.1-9.9 Egfr Non- 79.8 >60 Egfr 102.6 >60 43 Liver Function Panel 05/26/2013 Total Protein 6.2 g/dL 6.2-8.1 Albumin 3.9 g/dL 3.6-5.4 Globulin 2.3 g/dL 2-4 Albumin/Globulin Ratio 1.7 1-3 Total Bilirubin 0.7 mg/dL 0.4-1.5 Direct Bilirubin 0.1 mg/dL 0.1-0.5 Indirect Bilirubin 0.6 mg/dL 0.3-1.0 Alkaline Phosphatase 97 U/L 30-110 Alt 34 U/L 14-54 Ast 23 U/L 12-42 Laboratory test 05/26/2013 C Reactive Protein 0.8 mg/dL High Less than 0.5 finding CBC With Manual Diff 05/26/2013 White Blood Count 8.3 10^3/uL 4.8-10.8 Red Blood Count 5.16 10^6/uL 4.0-5.4 Hemoglobin 15.8 g/dL 14.0-18.0 Hematocrit 47 % 42-52 Mean Corpuscular Volume 91 fL 80-94 Mean Corpuscular Hemoglobin 31 pg 27-31 Mean Corpuscular HGB Conc 34 g/dL 31-36 Red Cell Distribution Width 14 % 10.5-15 Platelet Count 225 10^3/uL 150-450 Mean Platelet Volume 9 um3 7.4-10.4 Abs Neutrophils 6.3 10^3/uL 1.5-7.7 Abs Lymphocytes 1.1 10^3/uL 1.0-4.8 Abs Monocytes 0.7 10^3/uL 0-0.8 Abs Eosinophils 0.2 10^3/uL 0-0.6 Abs Basophils 0 10^3/uL 0-0.2 Abs Nucleated RBC 0.01 10^3/uL Neutrophil % 78 % 38-83 Lymphocytes % 13 % Low 25-47 Monocytes % 6 % 0-13 Reactive Lymph % 3 % 0-6 RBC Morphology Normal Normal Laboratory test finding 05/26/2013 Erythrocyte Sed Rate 25 mm/Hr High 0- 14 Basic Metabolic Panel 02/11/2013 Sodium 138 mmol/L 133-145 Potassium 4.5 mmol/L 3.5-5.0 Chloride 105 mmol/L 101-111 Co2 Carbon Dioxide 28.0 mmol/L 22-32 Anion Gap 5.0 mmol/L 2-11 Glucose 106 mg/dL High 70-100 Blood Urea Nitrogen 13 mg/dL 6-24 Creatinine 0.90 mg/dL 0.50-1.40 BUN/Creatinine Ratio 14.4 8-20 Calcium 9.0 mg/dL 8.1-9.9 Egfr Non- 90.1 >60 Egfr 115.8 >60 44 Liver Function Panel 02/11/2013 Total Protein 6.4 g/dL 6.2-8.1 Albumin 3.8 g/dL 3.6-5.4 Globulin 2.6 g/dL 2-4 Albumin/Globulin Ratio 1.5 1-3 Total Bilirubin 0.5 mg/dL 0.4-1.5 Direct Bilirubin 0.1 mg/dL 0.1-0.5 Indirect Bilirubin 0.4 mg/dL 0.3-1.0 Alkaline Phosphatase 103 U/L 30-110 Alt 38 U/L 14-54 Ast 27 U/L 12-42 Laboratory test 02/11/2013 C Reactive Protein 0.9 mg/dL High Less than 0.5 finding CBC With Manual Diff 02/11/2013 White Blood Count 8.2 10^3/uL 4.8-10.8 Red Blood Count 5.13 10^6/uL 4.0-5.4 Hemoglobin 15.8 g/dL 14.0-18.0 Hematocrit 47 % 42-52 Mean Corpuscular Volume 91 fL 80-94 Mean Corpuscular Hemoglobin 31 pg 27-31 Mean Corpuscular HGB Conc 34 g/dL 31-36 Red Cell Distribution Width 14 % 10.5-15 Platelet Count 216 10^3/uL 150-450 Mean Platelet Volume 9 um3 7.4-10.4 Abs Neutrophils 6.0 10^3/uL 1.5-7.7 Abs Lymphocytes 1.3 10^3/uL 1.0-4.8 Abs Monocytes 0.6 10^3/uL 0-0.8 Abs Eosinophils 0.2 10^3/uL 0-0.6 Abs Basophils 0 10^3/uL 0-0.2 Abs Nucleated RBC 0 10^3/uL Neutrophil % 79 % 38-83 Lymphocytes % 13 % Low 25-47 Monocytes % 4 % 0-13 Eosinophils % 4 % 0-6 RBC Morphology Normal Normal Laboratory test finding 02/11/2013 Erythrocyte Sed Rate 19 mm/Hr High 0- 14 Liver Function Panel 10/14/2012 Total Protein 5.9 g/dL Low 6.2-8.1 Albumin 3.7 g/dL 3.6-5.4 Globulin 2.2 g/dL 2-4 Albumin/Globulin Ratio 1.7 1-3 Total Bilirubin 0.4 mg/dL 0.4-1.5 Direct Bilirubin 0.1 mg/dL 0.1-0.5 Indirect Bilirubin 0.3 mg/dL 0.3-1.0 Alkaline Phosphatase 113 U/L High 30-110 Alt 36 U/L 14-54 Ast 25 U/L 12-42 Basic Metabolic Panel 10/14/2012 Sodium 135 mmol/L 133-145 Potassium 4.4 mmol/L 3.5-5.0 Chloride 107 mmol/L 101-111 Co2 Carbon Dioxide 25.0 mmol/L 22-32 Anion Gap 3.0 mmol/L 2-11 Glucose 106 mg/dL High 70-100 Blood Urea Nitrogen 16 mg/dL 6-24 Creatinine 0.80 mg/dL 0.50-1.40 BUN/Creatinine Ratio 20.0 8-20 Calcium 8.8 mg/dL 8.1-9.9 Egfr Non- 103.2 >60 Egfr 132.7 >60 45 Laboratory test 10/14/2012 C Reactive Protein 1.4 mg/dL High Less than 0.5 finding CBC With Manual Diff 10/14/2012 White Blood Count 8.0 10^3/uL 4.8-10.8 Red Blood Count 4.75 10^6/uL 4.0-5.4 Hemoglobin 14.6 g/dL 14.0-18.0 Hematocrit 43 % 42-52 Mean Corpuscular Volume 91 fL 80-94 Mean Corpuscular Hemoglobin 31 pg 27-31 Mean Corpuscular HGB Conc 34 g/dL 31-36 Red Cell Distribution Width 14 % 10.5-15 Platelet Count 225 10^3/uL 150-450 Mean Platelet Volume 9 um3 7.4-10.4 Abs Neutrophils 5.8 10^3/uL 1.5-7.7 Abs Lymphocytes 1.3 10^3/uL 1.0-4.8 Abs Monocytes 0.7 10^3/uL 0-0.8 Abs Eosinophils 0.2 10^3/uL 0-0.6 Abs Basophils 0 10^3/uL 0-0.2 Abs Nucleated RBC 0.01 10^3/uL Neutrophil % 75 % 38-83 Band % 1 % 0-8 Lymphocytes % 11 % Low 25-47 Monocytes % 6 % 0-13 Eosinophils % 3 % 0-6 Reactive Lymph % 4 % 0-6 RBC Morphology Normal Normal Laboratory test finding 10/14/2012 Erythrocyte Sed Rate 20 mm/Hr High 0- 14 Basic Metabolic Panel 07/30/2012 Sodium 139 mmol/L 133-145 Potassium 4.8 mmol/L 3.5-5.0 Chloride 108 mmol/L 101-111 Co2 Carbon Dioxide 26.0 mmol/L 22-32 Anion Gap 5.0 mmol/L 2-11 Glucose 100 mg/dL 70-100 Blood Urea Nitrogen 23 mg/dL 6-24 Creatinine 1.30 mg/dL 0.50-1.40 BUN/Creatinine Ratio 17.7 8-20 Calcium 9.1 mg/dL 8.1-9.9 Egfr Non- 59.2 >60 Egfr 76.1 >60 46 Liver Function Panel 07/30/2012 Total Protein 6.4 GM/DL 6.2-8.1 Albumin 3.9 GM/DL 3.6-5.4 Globulin 2.5 GM/DL 2-4 Albumin/Globulin Ratio 1.6 1-3 Total Bilirubin 0.7 mg/dL 0.1-1.0 47 Direct Bilirubin 0.1 mg/dL 0.1-0.5 Indirect Bilirubin 0.6 mg/dL 0.3-1.0 Alkaline Phosphatase 94 U/L 30-110 Alt 31 U/L 14-54 Ast 22 U/L 12-42 Laboratory test 07/30/2012 C Reactive Protein 1.2 mg/dL High Less Than 0.5 finding CBC With Manual Diff 07/30/2012 White Blood Count 10.7 10^3/uL 4.8-10.8 Red Blood Count 4.99 10^6/uL 4.0-5.4 Hemoglobin 15.1 g/dL 14.0-18.0 Hematocrit 46 % 42-52 Mean Corpuscular Volume 91 fL 80-94 Mean Corpuscular Hemoglobin 30 pg 27-31 Mean Corpuscular HGB Conc 33 g/dL 31-36 Red Cell Distribution Width 15 % 10.5-15 Platelet Count 233 10^3/uL 150-450 Mean Platelet Volume 10 um3 7.4-10.4 Abs Neutrophils 8.3 10^3/uL High 1.5-7.7 Abs Lymphocytes 1.5 10^3/uL 1.0-4.8 Abs Monocytes 0.8 10^3/uL 0-0.8 Abs Eosinophils 0.1 10^3/uL 0-0.6 Abs Basophils 0 10^3/uL 0-0.2 Abs Nucleated RBC 0 10^3/uL Neutrophil % 71.0 % 38-83 Band % 0 % 0-8 Lymphocytes % 22.0 % Low 25-47 Monocytes % 5.0 % 0-13 Eosinophils % 0 % 0-6 Basophil % 0 % 0-2 Reactive Lymph % 2.0 % 0-6 Metamyelocytes % 0 % 0-2 Myelocytes % 0 % 0-1 Promyelocytes % 0 % Blast % 0 % RBC Morphology Normal Normal Laboratory test finding 07/30/2012 Erythrocyte Sed Rate 26 MM/HR High 0- 14 Liver Function Panel 06/02/2012 Total Protein 7.0 GM/DL 6.2-8.1 Albumin 3.8 GM/DL 3.6-5.4 Globulin 3.2 GM/DL 2-4 Albumin/Globulin Ratio 1.2 1-3 Bilirubin Total 0.6 mg/dL 0.4-1.5 48 Bilirubin Direct 0.1 mg/dL 0.1-0.5 Indirect Bilirubin 0.5 mg/dL 0.3-1.0 49 Alkaline Phosphatase 96 U/L 39-117 Alt (SGPT) 34 U/L 17-63 Ast (Sgot) 25 U/L 12-42 Basic Metabolic Panel 06/02/2012 Sodium 138 mmol/L 135-145 Potassium 4.5 mmol/L 3.5-5.0 Chloride 106 mmol/L 101-111 Co2 (Carbon Dioxide) 26.0 mmol/L 22-32 Anion Gap 6.0 mmol/L 2-11 50 Glucose 95 mg/dL 70-100 BUN 18 mg/dL 6-24 Creatinine 0.9 mg/dL 0.50-1.40 One Over Creatinine 1.11 BUN/Creatinine Ratio 20.0 8-20 Calcium 9.0 mg/dL 8.1-9.9 eGFR Non- 90.4 > 60 eGFR 116.3 > 60 51 CBC With Manual Diff 06/02/2012 White Blood Count 9.2 CUMM 4.8-10.8 Red Cell Count 4.79 CUMM 4.6-6.2 Hemoglobin 14.9 g/dL 14.0-18.0 Hematocrit 43 % 42-52 Mean Corpuscular Volume 90 um3 80-94 Mean Corpuscular Hemoglob 31 pg 27-31 Mean Corpuscular HGB Cone 35 g/dL 32-36 Redcell Distribution WDTH 15 % 10.5-15 Platelet Count 251 CUMM 150-450 Mean Platelet Volume 9.2 um3 7.4-10.4 Absolute Neutrophil Count 6.4 1.5-7.7 Polysegmented Neutrophil 73 % 38-83 Lymphocyte 17 % Low 25-47 Monocyte 5 % 0-13 Eosinophil 2 % 0-6 Atypical Lymph 3 % 0-6 RBC Morphology NORMAL Laboratory test finding 06/02/2012 C Reactive Protein 1.2 mg/dL High Less Than 0.5 Erythrocyte Sed Rate 21 MM/HR High 0-15 Basic Metabolic Panel 02/17/2012 Sodium 137 mmol/L 135-145 Potassium 4.7 mmol/L 3.5-5.0 Chloride 105 mmol/L 101-111 Co2 (Carbon Dioxide) 29.0 mmol/L 22-32 Anion Gap 3.0 mmol/L 2-11 52 Glucose 98 mg/dL 70-100 BUN 17 mg/dL 6-24 Creatinine 1.0 mg/dL 0.50-1.40 One Over Creatinine 1.00 BUN/Creatinine Ratio 17.0 8-20 Calcium 8.7 mg/dL 8.1-9.9 eGFR Non- 80.1 > 60 eGFR 103.0 > 60 53 Liver Function Panel 02/17/2012 Total Protein 6.5 GM/DL 6.2-8.1 Albumin 3.9 GM/DL 3.6-5.4 Globulin 2.6 GM/DL 2-4 Albumin/Globulin Ratio 1.5 1-3 Bilirubin Total 0.6 mg/dL 0.4-1.5 54 Bilirubin Direct 0.1 mg/dL 0.1-0.5 Indirect Bilirubin 0.5 mg/dL 0.3-1.0 55 Alkaline Phosphatase 86 U/L 39-117 Alt (SGPT) 26 U/L 17-63 Ast (Sgot) 22 U/L 12-42 Laboratory test finding 02/17/2012 C Reactive Protein 1.7 mg/dL High Less Than 0.5 CBC Auto Diff 02/17/2012 White Blood Count 7.2 CUMM 4.8-10.8 Red Cell Count 4.66 CUMM 4.6-6.2 Hemoglobin 14.5 g/dL 14.0-18.0 Hematocrit 42 % 42-52 Mean Corpuscular Volume 91 um3 80-94 Mean Corpuscular Hemoglob 31 pg 27-31 Mean Corpuscular HGB Cone 34 g/dL 32-36 Redcell Distribution WDTH 14 % 10.5-15 Platelet Count 243 CUMM 150-450 Mean Platelet Volume 9.5 um3 7.4-10.4 Absolute Neutrophil Count 5.3 1.5-7.7 56 Manual Differential 02/17/2012 Polysegmented Neutrophil 80 % 38-83 Lymphocyte 12 % Low 25-47 Monocyte 7 % 0-13 Eosinophil 1 % 0-6 RBC Morphology NORMAL Laboratory test finding 02/17/2012 Erythrocyte Sed Rate 29 MM/HR High 0- 15 1 Because ethnic data is not always readily available, this report includes an eGFR for both -Americans and non- Americans. The National Kidney Disease Education Program (NKDEP) does not endorse the use of the MDRD equation for patients that are not between the ages of 18 and 70, are , have extremes of body size, muscle mass, or nutritional status, or are non- or non-. According to the National Kid[employer], irrespective of diagnosis, the stage of the disease is based on the level of kidney function: Stage Description GFR(mL/min/1.73 m(2)) 1 Kidney damage with normal or decreased GFR 90 2 Kidney damage with mild decrease in GFR 60-89 3 Moderate decrease in GFR 30-59 4 Severe decrease in GFR 15-29 5 Kidney failure <15 (or dialysis) 2 Acute inflammation: >10.00 3 Because ethnic data is not always readily available, this report includes an eGFR for both -Americans and non- Americans. The National Kidney Disease Education Program (NKDEP) does not endorse the use of the MDRD equation for patients that are not between the ages of 18 and 70, are , have extremes of body size, muscle mass, or nutritional status, or are non- or non-. According to the National [employer], irrespective of diagnosis, the stage of the disease is based on the level of kidney function: Stage Description GFR(mL/min/1.73 m(2)) 1 Kidney damage with normal or decreased GFR 90 2 Kidney damage with mild decrease in GFR 60-89 3 Moderate decrease in GFR 30-59 4 Severe decrease in GFR 15-29 5 Kidney failure <15 (or dialysis) 4 Acute inflammation: >10.00 5 Because ethnic data is not always readily available, this report includes an eGFR for both -Americans and non- Americans. The National Kidney Disease Education Program (NKDEP) does not endorse the use of the MDRD equation for patients that are not between the ages of 18 and 70, are , have extremes of body size, muscle mass, or nutritional status, or are non- or non-. According to the National Kid[employer], irrespective of diagnosis, the stage of the disease is based on the level of kidney function: Stage Description GFR(mL/min/1.73 m(2)) 1 Kidney damage with normal or decreased GFR 90 2 Kidney damage with mild decrease in GFR 60-89 3 Moderate decrease in GFR 30-59 4 Severe decrease in GFR 15-29 5 Kidney failure <15 (or dialysis) 6 Acute inflammation: >10.00 7 standing order 8 Because ethnic data is not always readily available, this report includes an eGFR for both -Americans and non- Americans. The National Kidney Disease Education Program (NKDEP) does not endorse the use of the MDRD equation for patients that are not between the ages of 18 and 70, are , have extremes of body size, muscle mass, or nutritional status, or are non- or non-. According to the National Kid[employer], irrespective of diagnosis, the stage of the disease is based on the level of kidney function: Stage Description GFR(mL/min/1.73 m(2)) 1 Kidney damage with normal or decreased GFR 90 2 Kidney damage with mild decrease in GFR 60-89 3 Moderate decrease in GFR 30-59 4 Severe decrease in GFR 15-29 5 Kidney failure <15 (or dialysis) 9 Acute inflammation: >10.00 10 STANDING ORDER ENTERED 07/15/16 EXPIRES 01/13/17 Q 3 MONTHS 11 Therapeutic target for the treatment of diabetes Mellitus patients is <7% HBA1C, and in selective patients <6.0%.Please refer to [place] [employer] Diabetic care guidelines for further information. 12 Because ethnic data is not always readily available, this report includes an eGFR for both -Americans and non- Americans. The National Kid[employer] Disease Education Program (NKDEP) does not endorse the use of the MDRD equation for patients that are not between the ages of 18 and 70, are , have extremes of body size, muscle mass, or nutritional status, or are non- or non-. According to the National Kid[employer], irrespective of diagnosis, the stage of the disease is based on the level of kidney function: Stage Description GFR(mL/min/1.73 m(2)) 1 Kidney damage with normal or decreased GFR 90 2 Kidney damage with mild decrease in GFR 60-89 3 Moderate decrease in GFR 30-59 4 Severe decrease in GFR 15-29 5 Kidney failure <15 (or dialysis) 13 Acute inflammation: >10.00 14 standing order q 3 month 15 Because ethnic data is not always readily available, this report includes an eGFR for both -Americans and non- Americans. The National Kidney Disease Education Program (NKDEP) does not endorse the use of the MDRD equation for patients that are not between the ages of 18 and 70, are , have extremes of body size, muscle mass, or nutritional status, or are non- or non-. According to the National Kid[employer], irrespective of diagnosis, the stage of the disease is based on the level of kidney function: Stage Description GFR(mL/min/1.73 m(2)) 1 Kidney damage with normal or decreased GFR 90 2 Kidney damage with mild decrease in GFR 60-89 3 Moderate decrease in GFR 30-59 4 Severe decrease in GFR 15-29 5 Kidney failure <15 (or dialysis) 16 STANDING ORDER VALID 04/08/16-10/09/16 Q 3 MONTHS OR DIRECTED 17 Acute inflammation: >10.00 18 Because ethnic data is not always readily available, this report includes an eGFR for both -Americans and non- Americans. The National Kid[employer] Disease Education Program (NKDEP) does not endorse the use of the MDRD equation for patients that are not between the ages of 18 and 70, are , have extremes of body size, muscle mass, or nutritional status, or are non- or non-. According to the National Kid[employer], irrespective of diagnosis, the stage of the disease is based on the level of kidney function: Stage Description GFR(mL/min/1.73 m(2)) 1 Kidney damage with normal or decreased GFR 90 2 Kidney damage with mild decrease in GFR 60-89 3 Moderate decrease in GFR 30-59 4 Severe decrease in GFR 15-29 5 Kidney failure <15 (or dialysis) 19 Acute inflammation: >10.00 20 standing orders q 6 weeks 21 Therapeutic target for the treatment of diabetes Mellitus patients is <7% HBA1C, and in selective patients <6.0%.Please refer to [place] [employer] Diabetic care guidelines for further information. 22 Because ethnic data is not always readily available, this report includes an eGFR for both -Americans and non- Americans. The National Kid[employer] Disease Education Program (NKDEP) does not endorse the use of the MDRD equation for patients that are not between the ages of 18 and 70, are , have extremes of body size, muscle mass, or nutritional status, or are non- or non-. According to the National Kid[employer], irrespective of diagnosis, the stage of the disease is based on the level of kidney function: Stage Description GFR(mL/min/1.73 m(2)) 1 Kidney damage with normal or decreased GFR 90 2 Kidney damage with mild decrease in GFR 60-89 3 Moderate decrease in GFR 30-59 4 Severe decrease in GFR 15-29 5 Kidney failure <15 (or dialysis) 23 Acute inflammation: >10.00 24 S/O EXP:11/03/2015 25 Because ethnic data is not always readily available, this report includes an eGFR for both -Americans and non- Americans. The National Kid[employer] Disease Education Program (NKDEP) does not endorse the use of the MDRD equation for patients that are not between the ages of 18 and 70, are , have extremes of body size, muscle mass, or nutritional status, or are non- or non-. According to the National Kid[employer], irrespective of diagnosis, the stage of the disease is based on the level of kidney function: Stage Description GFR(mL/min/1.73 m(2)) 1 Kidney damage with normal or decreased GFR 90 2 Kidney damage with mild decrease in GFR 60-89 3 Moderate decrease in GFR 30-59 4 Severe decrease in GFR 15-29 5 Kidney failure <15 (or dialysis) 26 Acute inflammation: >10.00 27 Because ethnic data is not always readily available, this report includes an eGFR for both -Americans and non- Americans. The National Kid[employer] Disease Education Program (NKDEP) does not endorse the use of the MDRD equation for patients that are not between the ages of 18 and 70, are , have extremes of body size, muscle mass, or nutritional status, or are non- or non-. According to the National [employer], irrespective of diagnosis, the stage of the disease is based on the level of kidney function: Stage Description GFR(mL/min/1.73 m(2)) 1 Kidney damage with normal or decreased GFR 90 2 Kidney damage with mild decrease in GFR 60-89 3 Moderate decrease in GFR 30-59 4 Severe decrease in GFR 15-29 5 Kidney failure <15 (or dialysis) 28 Acute inflammation: >10.00 29 Because ethnic data is not always readily available, this report includes an eGFR for both -Americans and non- Americans. The National Kidney Disease Education Program (NKDEP) does not endorse the use of the MDRD equation for patients that are not between the ages of 18 and 70, are , have extremes of body size, muscle mass, or nutritional status, or are non- or non-. According to the National Kidney Foundation, irrespective of diagnosis, the stage of the disease is based on the level of kidney function: Stage Description GFR(mL/min/1.73 m(2)) 1 Kidney damage with normal or decreased GFR 90 2 Kidney damage with mild decrease in GFR 60-89 3 Moderate decrease in GFR 30-59 4 Severe decrease in GFR 15-29 5 Kidney failure <15 (or dialysis) 30 Acute inflammation: >10.00 31 Acute inflammation: >10.00 32 Because ethnic data is not always readily available, this report includes an eGFR for both -Americans and non- Americans. The National Kidney Disease Education Program (NKDEP) does not endorse the use of the MDRD equation for patients that are not between the ages of 18 and 70, are , have extremes of body size, muscle mass, or nutritional status, or are non- or non-. According to the National Kidney Foundation, irrespective of diagnosis, the stage of the disease is based on the level of kidney function: Stage Description GFR(mL/min/1.73 m(2)) 1 Kidney damage with normal or decreased GFR 90 2 Kidney damage with mild decrease in GFR 60-89 3 Moderate decrease in GFR 30-59 4 Severe decrease in GFR 15-29 5 Kidney failure <15 (or dialysis) 33 Acute inflammation: >10.00 34 Because ethnic data is not always readily available, this report includes an eGFR for both -Americans and non- Americans. The National Kidney Disease Education Program (NKDEP) does not endorse the use of the MDRD equation for patients that are not between the ages of 18 and 70, are , have extremes of body size, muscle mass, or nutritional status, or are non- or non-. According to the National Kidney Foundation, irrespective of diagnosis, the stage of the disease is based on the level of kidney function: Stage Description GFR(mL/min/1.73 m(2)) 1 Kidney damage with normal or decreased GFR 90 2 Kidney damage with mild decrease in GFR 60-89 3 Moderate decrease in GFR 30-59 4 Severe decrease in GFR 15-29 5 Kidney failure <15 (or dialysis) 35 -- REFERENCE VALUE -- <20.0 (Negative) Test Performed by: [place] [address] Merchandising Specialist: Rj Barton III, M.D. 36 Test Performed by: [place] [address] Merchandising Specialist: Rj Barton III, M.D. 37 The above KRAINA screen is designed for the detection of antibodies to extractable nuclear antigen (KARINA) in human serum. It is a combination test for the detection of antibodies to CREDIT REVIEW OFFICER, Sm, SS-A (Ro), and SS-B (La) nuclear antigens. 38 Because ethnic data is not always readily available, this report includes an eGFR for both -Americans and non- Americans. The National Kidney Disease Education Program (NKDEP) does not endorse the use of the MDRD equation for patients that are not between the ages of 18 and 70, are , have extremes of body size, muscle mass, or nutritional status, or are non- or non-. According to the National Kidney Foundation, irrespective of diagnosis, the stage of the disease is based on the level of kidney function: Stage Description GFR(mL/min/1.73 m(2)) 1 Kidney damage with normal or decreased GFR 90 2 Kidney damage with mild decrease in GFR 60-89 3 Moderate decrease in GFR 30-59 4 Severe decrease in GFR 15-29 5 Kidney failure <15 (or dialysis) 39 Acute inflammation: >10.00 In accordance with FDA guideline, CRP is now reported in mg/L, previous reporting was in mg/dL. 40 Test Performed by: [facility] [address] [place] [address] Merchandising Specialist: Rj Barton III, M.D. 41 Interpretation: Weak Positive (20.0-39.9) -- REFERENCE VALUE -- <20.0 (Negative) Test Performed by: [place] [address] Merchandising Specialist: Rj Barton III, M.D. 42 Because ethnic data is not always readily available, this report includes an eGFR for both -Americans and non- Americans. The National Kidney Disease Education Program (NKDEP) does not endorse the use of the MDRD equation for patients that are not between the ages of 18 and 70, are , have extremes of body size, muscle mass, or nutritional status, or are non- or non-. According to the National Kidney Foundation, irrespective of diagnosis, the stage of the disease is based on the level of kidney function: Stage Description GFR(mL/min/1.73 m(2)) 1 Kidney damage with normal or decreased GFR 90 2 Kidney damage with mild decrease in GFR 60-89 3 Moderate decrease in GFR 30-59 4 Severe decrease in GFR 15-29 5 Kidney failure <15 (or dialysis) 43 Because ethnic data is not always readily available, this report includes an eGFR for both -Americans and non- Americans. The National Kidney Disease Education Program (NKDEP) does not endorse the use of the MDRD equation for patients that are not between the ages of 18 and 70, are , have extremes of body size, muscle mass, or nutritional status, or are non- or non-. According to the National Kidney Foundation, irrespective of diagnosis, the stage of the disease is based on the level of kidney function: Stage Description GFR(mL/min/1.73 m(2)) 1 Kidney damage with normal or decreased GFR 90 2 Kidney damage with mild decrease in GFR 60-89 3 Moderate decrease in GFR 30-59 4 Severe decrease in GFR 15-29 5 Kidney failure <15 (or dialysis) 44 Because ethnic data is not always readily available, this report includes an eGFR for both -Americans and non- Americans. The National Kidney Disease Education Program (NKDEP) does not endorse the use of the MDRD equation for patients that are not between the ages of 18 and 70, are , have extremes of body size, muscle mass, or nutritional status, or are non- or non-. According to the National Kidney Foundation, irrespective of diagnosis, the stage of the disease is based on the level of kidney function: Stage Description GFR(mL/min/1.73 m(2)) 1 Kidney damage with normal or decreased GFR 90 2 Kidney damage with mild decrease in GFR 60-89 3 Moderate decrease in GFR 30-59 4 Severe decrease in GFR 15-29 5 Kidney failure <15 (or dialysis) 45 Because ethnic data is not always readily available, this report includes an eGFR for both -Americans and non- Americans. The National Kidney Disease Education Program (NKDEP) does not endorse the use of the MDRD equation for patients that are not between the ages of 18 and 70, are , have extremes of body size, muscle mass, or nutritional status, or are non- or non-. According to the National Kidney Foundation, irrespective of diagnosis, the stage of the disease is based on the level of kidney function: Stage Description GFR(mL/min/1.73 m(2)) 1 Kidney damage with normal or decreased GFR 90 2 Kidney damage with mild decrease in GFR 60-89 3 Moderate decrease in GFR 30-59 4 Severe decrease in GFR 15-29 5 Kidney failure <15 (or dialysis) 46 Because ethnic data is not always readily available, this report includes an eGFR for both -Americans and non- Americans. The National Kidney Disease Education Program (NKDEP) does not endorse the use of the MDRD equation for patients that are not between the ages of 18 and 70, are , have extremes of body size, muscle mass, or nutritional status, or are non- or non-. According to the National Kidney Foundation, irrespective of diagnosis, the stage of the disease is based on the level of kidney function: Stage Description GFR(mL/min/1.73 m(2)) 1 Kidney damage with normal or decreased GFR 90 2 Kidney damage with mild decrease in GFR 60-89 3 Moderate decrease in GFR 30-59 4 Severe decrease in GFR 15-29 5 Kidney failure <15 (or dialysis) 47 A metabolite of Naproxen, O-desmethylnaproxen, has been shown to interfere with the Jendrassik-Louann method for measuring total bilirubin. Samples from patients who have taken Naproxen have shown spurious elevation in total bilirubin levels. 48 A metabolite of Naproxen, O-desmethylnaproxen, has been shown to interfere with the Jendrassik-Sikeston method for measuring total bilirubin. Samples from patients who have taken Naproxen have shown spurious elevation in total bilirubin levels. 49 Please note updated reference range, effective 04/11/10 50 Anion gap measurement may be of limited value in the presence of any alkalosis, especially in a combined acid base disorder. . 51 Because ethnic data is not always readily available, this report includes an eGFR for both -Americans and non- Americans. The National Kidney Disease Education Program (NKDEP) does not endorse the use of the MDRD equation for patients that are not between the ages of 18 and 70, are , have extremes of body size, muscle mass, or nutritional status, or are non- or non-. According to the National Kidney Foundation, irrespective of diagnosis, the stage of the disease is based on the level of kidney function: Stage Description GFR(mL/min/1.73 m(2)) 1 Kidney damage with normal or decreased GFR 90 2 Kidney damage with mild decrease in GFR 60-89 3 Moderate decrease in GFR 30-59 4 Severe decrease in GFR 15-29 5 Kidney failure <15 (or dialysis) 52 Anion gap measurement may be of limited value in the presence of any alkalosis, especially in a combined acid base disorder. . 53 Because ethnic data is not always readily available, this report includes an eGFR for both -Americans and non- Americans. The National Kidney Disease Education Program (NKDEP) does not endorse the use of the MDRD equation for patients that are not between the ages of 18 and 70, are , have extremes of body size, muscle mass, or nutritional status, or are non- or non-. According to the National Kidney Foundation, irrespective of diagnosis, the stage of the disease is based on the level of kidney function: Stage Description GFR(mL/min/1.73 m(2)) 1 Kidney damage with normal or decreased GFR 90 2 Kidney damage with mild decrease in GFR 60-89 3 Moderate decrease in GFR 30-59 4 Severe decrease in GFR 15-29 5 Kidney failure <15 (or dialysis) 54 A metabolite of Naproxen, O-desmethylnaproxen, has been shown to interfere with the Jendrassik-Louann method for measuring total bilirubin. Samples from patients who have taken Naproxen have shown spurious elevation in total bilirubin levels. 55 Please note updated reference range, effective 04/11/10 56 Lymphopenia % Procedures Description No Information Encounters Type Date Location Provider CPT E/M Dx Office Visit 08/24/2017 [facility] [place] [address] M06.09 8:00a Of [facility] M25.511 Z79.899 Z23 Office Visit 05/22/2017 8:00a [facility] [place] FNP [address] M06.09 Of [facility] R79.82 M25.511 Z79.899 J30.9 Office Visit 11/18/2016 8:00a [place] [address] M06.09 Of Family Service Worker R79.82 E66.9 Z79.899 Office Visit 07/15/2016 8:00a [place] [address] M06.09 Of Family Service Worker M25.512 E66.9 Z79.899 R73.01 Z23 Office Visit 03/14/2016 8:30a [facility] [place] F[place] [address] M06.09 Of Family Service Worker M25.512 E66.9 Z79.899 Office Visit 11/06/2015 8:30a [facility] [place] FNP [address] M06.09 Of Family Service Worker E66.9 Z79.899 M05.9 Office Visit 08/01/2015 8:30a [place] [address] M06.09 Of Family Service Worker Z79.899 E66.9 Z23 M05.9 Office Visit 05/03/2015 8:30a [facility] [place] [address] 714.0 Family Service Worker 719.41 V58.69 Office Visit 01/23/2015 9:00a [facility] [place] F[place] [address] 714.0 Family Service Worker V58.69 Office Visit 10/26/2014 8:30a [facility] [place] [address] 714.0 Family Service Worker V58.69 Office Visit 07/21/2014 9:00a [facility] Of Nicho Barnes, COMMUNICATION EQUIPMENT MECHANIC [address]991 714.0 Family Service Worker 719.41 V58.69 V04.81 Office Visit 04/13/2014 8:30a [place] [address] 714.0 Family Service Worker V58.69 Office Visit 01/12/2014 9:00a [place] [address] 714.0 Family Service Worker V58.69 Office Visit 09/16/2013 8:30a [facility] Of Nicho Barnes, COMMUNICATION EQUIPMENT MECHANIC [address]888 714.0 Family Service Worker V58.69 782.9 Office Visit 06/17/2013 8:20a [facility] Of Nicho Barnes, COMMUNICATION EQUIPMENT MECHANIC 97814 714.0 Family Service Worker V58.69 Office Visit 02/23/2013 9:00a [facility] [place] [address] 714.0 Family Service Worker 719.46 V58.69 Office Visit 10/14/2012 8:40a [facility] [place] [address] 714.0 Family Service Worker V58.69 719.46 Office Visit 07/09/2012 1:40p [facility] Services Otis Sanchez M.D. 73768 714.0 Of Family Service Worker V58.69 719.46 Office Visit 03/05/2012 10:40a [facility] Services Otis Sanchez M.D. 34174 714.0 Of Family Service Worker V58.69 726.10 Office Visit 12/09/2011 11:00a [facility] Services Otis Sanchez M.D. 43825 714.0 Of Family Service Worker V58.69 Office Visit 09/09/2011 3:40p [facility] Services Otis Sanchez M.D. 13005 714.0 Of Family Service Worker V58.69 Office Visit 05/08/2011 11:00a [facility] Services Otis Sanchez M.D. 31514 714.0 Of Family Service Worker V58.69 Office Visit 02/27/2011 11:00a [facility] Services Otis Sanchez M.D. 55664 714.0 Of Family Service Worker V58.69 Office Visit 12/24/2010 9:40a [facility]ology Services Otis Sanchez M.D. 32128 714.0 Of Family Service Worker V58.69 Plan of Care Future Appointment(s):02/25/2018 8:30 am - [place] at [facility]eeapxjlz45/05/2018 - Nicho Barnes, BRYCEPM06.09 Rheumatoid arthritis w/o rheumatoid factor, multiple sitesComments:Your arthritis flare is likely was caused by increased activity of your immune systems caused by therespiratory infection.For now we will continue on the same medication regime.Please get labs today. I will call if any abnormality we need to f/ uFollow up:3 month labs today and prior to OVM25.511 Pain in right shoulderComments:We discussed possible cause of shoulder pain. It would be nice to see an Xray of shoulders.Be careful with repetitive [id number] Exfoliative ysgolqdgkcX36.9 Acute upper respiratory infection, unspecifiedComments:~B_VIRAL UPPER RESPIRATORY INFECTION: ~b_ Recommend aggressive symptom management with acetaminophenor ibuprofen, nasal saline.These are available OTC.It is essential to keep well hydrated. May use cough drop, increased vitamin C. Consider having a humidifier running in your bedroom at night.Monitorfor signs of possible secondary bacterial infection (fevers, chills, worsening cough or shortness ofbreath) and call back right away if any of these symptoms develop.R00.0 Tachycardia, oufuvcftwkvX11.899 Other alf (current) drug therapy
[2017-12-03 16:36] VITALS: BP 144/85
--- NOTE | 2017-12-03 16:46 | UC ---
Respiratory Complaint HPI - HPI Summary HPI Summary: 52 year old male with cough , post nasal drip and some sinus pressure . concerned about possible bronchitis, dry cough, for past 2 weeks. Cough worsening and having some shortness of breath at times when coughing. some phlegm at times. no fever. no CP. has had some sinus pressure and post nasal drip as well. went to rheum 10 days ago and was told had infection and patient started amox for 4 days but then stopped and since then the sx have persisted/ worsened. [ End ] - History of Current Complaint Chief Complaint: UCGeneralIllness Stated Complaint: UPPER RESP Time Seen by Provider: 12/03/17 16:38 Hx Obtained From: Patient Onset/Duration: Gradual Onset Timing: Constant Severity Initially: Moderate Severity Currently: Moderate Pain Intensity: 0 Character: Cough: Productive Associated Signs And Symptoms: Positive: Nasal Congestion, Sinus Discomfort - Allergies/Home Medications Allergies/Adverse Reactions: Allergies Allergy/AdvReac Type Severity Reaction Status Date / Time No Known Allergies Allergy Verified 12/03/17 16:36 PMH/Surg Hx/FS Hx/Imm Hx Previously Healthy: Yes - RA - Surgical History Surgical History: None - Social History Occupation: Employed Full-time - [employer] Alcohol Use: Rare Substance Use Type: None Smoking Status (MU): Never Smoked Tobacco Review of Systems ENT: Sore Throat, Nasal Discharge, Sinus Congestion, Sinus Pain/Tenderness Respiratory: Cough Is Patient Immunocompromised?: No All Other Systems Reviewed And Are Negative: Yes Physical Exam Triage Information Reviewed: Yes Appearance: Well-Appearing, No Pain Distress, Well-Nourished Vital Signs: Initial Vital Signs Temp 97.4 F 12/03/17 16:31 Pulse 93 12/03/17 16:31 Resp 20 12/03/17 16:31 BP 144/85 12/03/17 16:31 Pulse Ox 97 12/03/17 16:31 Vital Signs Reviewed: Yes Eye Exam: Normal ENT Exam: Normal ENT: Positive: Pharyngeal erythema, Nasal congestion, Nasal drainage, Sinus tenderness. Negative: Tonsillar swelling, Tonsillar exudate Dental Exam: Normal Neck exam: Normal Neck: Positive: 1 Respiratory Exam: Normal Cardiovascular Exam: Normal Musculoskeletal Exam: Normal Neurological Exam: Normal Psychological Exam: Normal Skin Exam: Normal UC Diagnostic Evaluation - Laboratory O2 Sat by Pulse Oximetry: 97 Respiratory Course/Dx - Course Course Of Treatment: With methotrexate and the recent partial dose of amox that helped him, and now worsening since the stopping of that med will resume at this time to treat for URI / Sinusitis but the Abx use does cause it to be more difficult to assess the pt. Treat at this time and go to ED if any concerns Lungs CTA - Differential Dx/Diagnosis Differential Diagnosis/HQI/PQRI: Bronchitis, Lower Resp Infection, Sinusitis Provider Diagnoses: Sinusitis / URI Discharge - Discharge Plan Condition: Good Disposition: HOME Prescriptions: Amoxicillin/Clavulanate TAB* [Augmentin TAB 875*] 875 mg PO BID #20 tab Patient Education Materials: Upper Respiratory Infection (ED) Referrals: Nicho Barnes MANAGER [employer]AL[employer]IANCE [Primary Care Provider] - 4 Days Additional Instructions: For your Upper Respiratory Infection / Sinusitis you are advised to start antibiotics and take them for the whole 10 day course.
== END 2017-12-03 16:59 | disposition home or self-care (01) ==
LOC: UCCORT 16:19
DX: J32.9 Chronic sinusitis, unspecified (principal); J06.9 Acute upper respiratory infection, unspecified
CPT/HCPCS: 99212; G0463

== ENCOUNTER 2019-10-12 11:17 | Emergency (ER) | payer BC ==
[2019-10-12 11:43] VITALS: BP 126/78
--- NOTE | 2019-10-12 12:08 | UC ---
Respiratory Complaint HPI - HPI Summary HPI Summary: cough x 2 weeks cough is dry , harsh worse with deep breathing, nothing makes it better no fever, no chills , no nasal congestion denies any sob or wheezing, was seen last week , was placed on prednisone and tessalon with no improvement - History of Current Complaint Chief Complaint: UCRespiratory Stated Complaint: COUGH CONGESTION Time Seen by Provider: 10/12/19 11:42 Hx Obtained From: Patient Onset/Duration: Gradual Onset, Lasting Days - 14, Still Present Timing: Constant Severity Initially: Moderate Severity Currently: Moderate Pain Intensity: 0 Character: Cough: Nonproductive Aggravating Factors: Exertion, Deep Breaths, Recumbent Position Alleviating Factors: Nothing Associated Signs And Symptoms: Negative: Dyspnea, Fever, Chills, Pleuritic Chest Pain, Wheezing, Hemoptysis, Dizziness, Calf Pain, Calf Swelling, Edema, Nasal Congestion - Allergies/Home Medications Allergies/Adverse Reactions: Allergies Allergy/AdvReac Type Severity Reaction Status Date / Time No Known Allergies Allergy Verified 10/12/19 11:33 Home Medications: Home Medications Blood Pressure Med 1 tab DAILY 10/12/19 [History Confirmed 10/12/19] metFORMIN* [Glucophage 500 MG TAB *] 1 tab BID 10/12/19 [History Confirmed 10/12] PMH/Surg Hx/FS Hx/Imm Hx Endocrine History: Diabetes - pre Cardiovascular History: Hypertension - Surgical History Surgical History: None - Family History Known Family History: Positive: Cardiac Disease - Social History Alcohol Use: Occasionally Substance Use Type: None Smoking Status (MU): Never Smoked Tobacco Have You Smoked in the Last Year: No - Immunization History Vaccination Up to Date: No Review of Systems All Other Systems Reviewed And Are Negative: Yes Constitutional: Positive: Negative Skin: Positive: Negative Eyes: Positive: Negative ENT: Positive: Negative Respiratory: Positive: Cough Cardiovascular: Positive: Negative. Negative: Chest Pain Is Patient Immunocompromised?: No Physical Exam Triage Information Reviewed: Yes Appearance: Well-Appearing, Obese Vital Signs: Initial Vital Signs Temp 98.1 F 10/12/19 11:36 Pulse 97 10/12/19 11:36 Resp 16 10/12/19 11:36 BP 126/78 10/12/19 11:36 Pulse Ox 98 10/12/19 11:36 Vital Signs Reviewed: Yes Eye Exam: Normal Eyes: Positive: Conjunctiva Clear ENT: Positive: Normal ENT inspection, Hearing grossly normal, Pharynx normal Neck: Positive: Supple, Nontender, No Lymphadenopathy Respiratory: Positive: Chest non-tender, Lungs clear, Normal breath sounds, No respiratory distress Cardiovascular: Positive: RRR, No Murmur, Pulses Normal, Brisk Capillary Refill Skin Exam: Normal Respiratory Course/Dx - Differential Dx/Diagnosis Provider Diagnosis: Bronchitis Discharge ED - Sign-Out/Discharge Documenting (check all that apply): Patient Departure All imaging exams completed and their final reports reviewed: No Studies - Discharge Plan Condition: Stable Disposition: HOME Prescriptions: DOXYcycline CAP(*) [DOXYcycline 100MG CAP(*)] 100 mg PO BID #20 cap guaiFENesin/CODIENE 100mg/10mg [Robitussin AC 100Mg/10Mg in 5 ml] 10 ml PO Q8H PRN #120 ml MDD 30 ml PRN Reason: Cough Patient Education Materials: Acute Bronchitis (ED) Referrals: No Primary Care Phys,NOPCP [Primary Care Provider] - If Needed - Billing Disposition and Condition Condition: STABLE Disposition: Home
== END 2019-10-12 12:09 | disposition home or self-care (01) ==
LOC: UCCORT 11:17
DX: J40 Bronchitis, not specified as acute or chronic (principal); I10 Essential (primary) hypertension; R73.03 Prediabetes; E66.9 Obesity, unspecified; Z79.84 Long term (current) use of oral hypoglycemic drugs; Z79.899 Other long term (current) drug therapy
CPT/HCPCS: 99212; G0463